=== PATIENT | female | born 1965 | race African-American/Black ===

== ENCOUNTER 2021-07-06 07:36 | Emergency (ER) | payer OTHER ==
[~2021-07-06 07:36] MED LIST: DICLOFENAC SODI75 MG PO
[2021-07-06 08:13] LABS: BASOPHIL 0.3 % (0-2); EOSINOPHIL 1.9 % (0-5); HCT 38.7 % (37.0-47.0); HGB 13.1 g/dl (12.5-16.0); MCH 29.5 pg (25.0-31.0); MCHC 33.9 g/dL (32.0-36.0); MCV 87.2 fL (78.0-100.0); MONOCYTE 4.7 % (0-12); MPV 9.7 fL (6.0-9.5); NEUTROPHIL 65.7 % (41-80); NRBC 0; PLT 319 K/uL (150-400); RBC 4.44 M/uL (4.20-5.40); RDW 13.3 % (11.5-14.0); WBC 10.9 K/uL (4.0-10.5)
[2021-07-06 08:27] LABS: INR 1.16 (0.9-1.2); PROTHROMBIN TIME 14.2 SECONDS (11.8-13.4); PTT 27.1 SECONDS (24.4-34.7)
[2021-07-06 08:47] LABS: ALBUMIN 3.3 g/dL (3.4-5.0); BILIRUBIN - TOTAL 0.4 mg/dL (0.2-1.0); BUN/CREAT RATIO (CALC) 18.2 RATIO; CREATININE 1.1 mg/dL (0.51-0.95); GLOBULIN (CALCULATION) 4.4 g/dL; POTASSIUM 3.8 mmol/L (3.5-5.1); TOTAL PROTEIN 7.7 g/dL (6.4-8.2)
[2021-07-06 08:51] LABS: CORONAVIRUS 2019 SARS-COV-2 NEGATIVE (NEGATIVE); INFLUENZA A NAA NEGATIVE (NEGATIVE)
[2021-07-06] MEDS ORDERED: CYCLOBENZAPRINE10 MG PO (09:40)
[2021-07-06] MEDS ORDERED: NAPROXEN500 MG PO (09:40)
== END 2021-07-06 10:20 | disposition home or self-care (01) ==
LOC: FER 07:36
PROVIDERS: Internal Medicine
DX: R06.02 Shortness of breath (principal); M25.512 Pain in left shoulder; R11.0 Nausea; I10 Essential (primary) hypertension; Z88.6 Allergy status to analgesic agent; Z20.822 Contact with and (suspected) exposure to COVID-19
CPT/HCPCS: 36415; 71045; 80053; 83690; 83880; 84145; 84484; 85025; 85610; 85730; 93005; U0002

== ENCOUNTER 2021-12-12 10:58 | Emergency (ER) | payer OTHER ==
[~2021-12-12 10:58] MED LIST changes: +CYCLOBENZAPRINE10 MG PO; +NAPROXEN500 MG PO
== END 2021-12-12 11:51 | disposition home or self-care (01) ==
LOC: FER 10:58
DX: R22.1 Localized swelling, mass and lump, neck (principal); I48.91 Unspecified atrial fibrillation; Z28.310 Unvaccinated for COVID-19; Z79.01 Long term (current) use of anticoagulants; Z86.73 Personal history of transient ischemic attack (TIA), and cerebral infarction without residual deficits; Z88.6 Allergy status to analgesic agent
CPT/HCPCS: 99283